=== PATIENT | male | born 1935 | race Caucasian/White ===

== ENCOUNTER 2016-10-03 08:55 | Outpatient (CLI) | payer MEDICARE ==
[2016-10-03 11:23] LABS: #Basophils 0.1 thou/uL (0.0-0.2); #Eosinphils 0.3 thou/uL (0.0-0.7); #Monocytes 0.5 thou/uL (0.11-0.59); #Neutrophils 4.3 thou/uL (1.40-6.50); %Basophils 1.1 % (0.0-1.0); %Eosinophils 4.4 % (0.0-10.0); %Lymphocytes 27.2 % (21.0-51.0); %Monocytes 7.3 % (0.0-10.0); Hemoglobin 15.7 g/dL (14.0-18.0); Mean Corpuscular HGB CONC 35.3 g/dL (32.0-36.0); Mean Corpuscular Hemoglobin 32.1 pg (27.0-31.0); Mean Corpuscular Volume 90.9 fl (80.0-94.0); Mean Platelet Volume 8.1 fL (7.4-10.4); Platelet Count 251 thou/uL (130-400); RBC Distribution Width 12.1 % (11.5-14.5); Red Blood Cell (RBC) Count 4.89 mill/uL (4.70-6.10); White Blood Cell (WBC) Count 7.2 thou/uL (4.8-10.8)
[2016-10-03 11:38] LABS: ALT (SGPT) 30 U/L (8-55); AST (SGOT) 17 U/L (5-34); Albumin 3.7 g/dL (3.4-4.8); Alkaline Phosphatase 67 U/L (40-150); Anion Gap 17 mmol/L (10-20); BUN (Urea Nitrogen) 14 mg/dL (8.4-25.7); Bilirubin, Total 0.6 mg/dL (0.2-1.2); Calc. Creatinine Clearance 0 mL/min (70-130); Calcium 9.7 mg/dL (7.8-10.44); Carbon Dioxide 23 mmol/L (23-31); Cardiac Risk 3.5 (Less than 4.5); Chloride 106 mmol/L (98-107); Cholesterol 159 mg/dl (< 200 Desired); Estimated GFR-MDRD 81; Globulin 2.6 g/dL (2.4-3.5); Glucose 113 mg/dL (83-110); HDL Cholesterol 45 mg/dL (>60 Neg Risk); LDL Cholesterol, Calculated 79 mg/dL; Protein, Total 6.3 g/dL (5.8-8.1); Sodium 142 mmol/L (136-145); Triglycerides 177 mg/dL (Less than 150)
== END 2016-10-03 08:56 | disposition home or self-care (01) ==
LOC: HPCALD 08:55
PROVIDERS: ATTEND Family Medicine
DX: Z12.5 Encounter for screening for malignant neoplasm of prostate (principal); E11.9 Type 2 diabetes mellitus without complications; I10 Essential (primary) hypertension
CPT/HCPCS: 36415; 80053; 80061; 83036; 85025; G0103

== ENCOUNTER 2018-08-10 16:22 | Outpatient (CLI) | payer MEDICARE ==
--- NOTE | 2018-08-10 17:45 | RAD ---
LEFT KNEE THREE VIEWS: Date: 08-10-18 FINDINGS: Arthritic changes are also present in this knee, but not to the same extent as the right knee. There are meniscal calcifications and some calcifications associated with the suprapatellar bursa. I do not see a large joint effusion. The patellofemoral joint is narrowed and shows osteophytes. IMPRESSION: Chronic arthritic changes but no acute finding. POS: HOME
--- NOTE | 2018-08-10 17:51 | RAD ---
RIGHT KNEE FOUR VIEWS: Date: 08-10-18 FINDINGS: Severe degenerative changes are present consisting of osteophytes and uniform joint space narrowing. The patella seen subluxed laterally a bit and the patellofemoral joint shows arthritic change. Calcif ic densities are seen along the medial and lateral part of the joint. These may be prior ligamentous injuries but there may be some loose bodies in this joint as well. A small joint effusion is present and some calcification is seen over the suprapatellar bursa. IMPRESSION: Small joint effusion. No fracture but severe arthritic changes as noted above. MRI would be helpful i n further investigating the patient if a procedure were planned. POS: HOME
== END 2018-08-10 16:23 | disposition home or self-care (01) ==
LOC: BURRAD 16:22
PROVIDERS: ATTEND Family Medicine
DX: M25.561 Pain in right knee (principal); M25.562 Pain in left knee; M17.0 Bilateral primary osteoarthritis of knee; M25.461 Effusion, right knee